=== PATIENT | female | born 1990 | race African-American/Black ===

== ENCOUNTER 2022-07-30 04:08 | Inpatient (IN) | payer OTHER ==
[2022-07-30] MEDS ORDERED: AMPICILLIN - 2 GM in SODIUM CHLORIDE 100 ML IVPB ONE (04:50)
[2022-07-30] MEDS ORDERED: ELECTROLYTE-148 SOLN 1,000 ML IV SCH (04:50)
[2022-07-30] MEDS ORDERED: AMPICILLIN SODIUM 2 GM VIAL ONE (05:17)
[2022-07-30 05:52] VITALS: BMI 36.2
[2022-07-30 07:06] LABS: BASO % 0.5 % (0-2.0); EOS % 4.1 % (0-4.5); HEMATOCRIT 34.4 % (32.4-45.2); HEMOGLOBIN 12.3 GM/dL (10.7-15.3); LYMPH % 29.3 % (8-40); MCH 33.9 pg (25.7-33.7); MCHC 35.7 g/dl (32.0-36.0); MEAN PLT VOLUME 10.9 fl (7.5-11.1); MONO % 10.1 % (3.8-10.2); PLATELET COUNT 162 10^3/uL (134-434); RBC 3.62 M/mm3 (3.60-5.2); RDW 13.3 % (11.6-15.6); WHITE BLOOD COUNT 5.1 K/mm3 (4.0-10.0)
[2022-07-30 07:21] LABS: INR 1.03 (0.83-1.09)
[2022-07-30 07:24] LABS: ACTIVATED PTT 27.6 SECONDS (25.2-36.5)
[2022-07-30 07:28] LABS: CALCIUM 8.8 mg/dL (8.5-10.1)
[2022-07-30 07:29] LABS: BLOOD UREA NITROGEN 14.2 mg/dL (7-18)
[2022-07-30 07:32] LABS: CREATININE 0.5 mg/dL (0.55-1.3)
[2022-07-30] MEDS ORDERED: BUTORPHANOL TARTRATE 1 MG/ML VIAL IVPUSH ONE (08:32)
[2022-07-30] MEDS ORDERED: PROMETHAZINE HCL 25 MG/1 ML VIAL IM ONE (08:32)
[2022-07-30] MEDS ORDERED: AMPICILLIN SODIUM 1 GM VIAL ONE ×4 (09:23→21:20)
[2022-07-30] MEDS ORDERED: SODIUM CHLORIDE 100 ML IVPB ONE ×3 (09:23→17:57)
[2022-07-30] MEDS: AMPICILLIN - 1 GM in SODIUM CHLORIDE 100 ML IVPB SCH ×4 (09:28→21:20)
[2022-07-30] MEDS: ELECTROLYTE-148 SOLN 1,000 ML IV SCH ×2 (12:10→19:10)
[2022-07-30] MEDS ORDERED: OXYTOCIN 30 UNITS in 0.9% NS 30 UNIT/500 ML INFUS.BAG IVPB ONE (13:29)
[2022-07-30] MEDS: OXYTOCIN 30 UNITS in 0.9% NS 30 UNIT/500 ML INFUS.BAG IVPB SCH (13:36)
[2022-07-30] MEDS ORDERED: OXYTOCIN 20 UNITS in 0.9% NS 20 UNIT/1,000 ML INFUS.BAG IV ONE (21:24)
[2022-07-30] MEDS ORDERED: LIDOCAINE HCL 1% PRESERVATIVE FREE - 30ML VIAL ONE (21:24)
[2022-07-31] MEDS ORDERED: AMPICILLIN SODIUM 1 GM VIAL ONE ×6 (01:44→23:35)
[2022-07-31] MEDS: AMPICILLIN - 1 GM in SODIUM CHLORIDE 100 ML IVPB SCH ×6 (01:47→23:30)
[2022-07-31] MEDS: ELECTROLYTE-148 SOLN 1,000 ML IV SCH ×4 (03:50→19:34)
[2022-07-31] MEDS ORDERED: SODIUM CHLORIDE 100 ML IVPB ONE ×3 (09:36→18:36)
[2022-07-31] MEDS: OXYTOCIN 30 UNITS in 0.9% NS 30 UNIT/500 ML INFUS.BAG IVPB SCH (10:42)
[2022-07-31] MEDS ORDERED: FENTANYL/BUPIVACAINE/NS/PF - PCEA - 50 ML DISP.SYRIN EP ONE ×3 (10:56→19:28)
[2022-07-31] MEDS ORDERED: FENTANYL CITRATE/PF 50 MCG/ML VIAL ONE ×3 (11:00→20:43)
[2022-07-31] MEDS ORDERED: BUPIVACAINE HCL/PF 0.25% (2.5MG/ML) 10 ML VIAL ONE ×4 (11:00→20:43)
[2022-07-31] MEDS ORDERED: LIDO 2%/EPI 1:200000 PRESRVFRE (20 ML SDVIAL) ONE ×2 (11:00→11:01)
[2022-07-31] MEDS: FENTANYL/BUPIVACAINE/NS/PF - PCEA - 50 ML DISP.SYRIN EP SCH ×3 (11:25→19:33)
[2022-07-31] MEDS ORDERED: NALOXONE HCL 0.4 MG/ML VIAL IVPUSH PRN (11:35)
[2022-07-31] MEDS ORDERED: ELECTROLYTE-148 SOLN 500 ML IV ONE (11:53)
[2022-07-31] MEDS ORDERED: LIDOCAINE HCL 1% PRESERVATIVE FREE - 30ML VIAL ONE (19:16)
[2022-07-31] MEDS ORDERED: OXYTOCIN 20 UNITS in 0.9% NS 20 UNIT/1,000 ML INFUS.BAG IV ONE (19:17)
[2022-08-01] MEDS ORDERED: WITCH HAZEL 50% (TUCKS) 40 PAD/JAR PAD TP PRN (00:34)
[2022-08-01] MEDS ORDERED: METHYLERGONOVINE MALEATE 0.2 MG/1 ML AMP IM PRN (00:34)
[2022-08-01] MEDS ORDERED: BENZOCAINE 20% 57 GM BOTTLE TP PRN (00:34)
[2022-08-01] MEDS ORDERED: BENZOCAINE 28 GM HEMORRHOIDAL OINTMENT TP PRN (00:34)
[2022-08-01] MEDS ORDERED: ACETAMINOPHEN 325 MG TABLET (FP) PO PRN (00:34)
[2022-08-01] MEDS ORDERED: BISACODYL 10 MG SUPP.RECT RC PRN (00:34)
[2022-08-01] MEDS ORDERED: oxyCODONE HCL 5 MG TABLET PO PRN (00:34)
[2022-08-01] MEDS ORDERED: OXYTOCIN 20 UNITS in 0.9% NS 20 UNIT/1,000 ML INFUS.BAG IV SCH (00:45)
[2022-08-01 01:18] LABS: CORD BASE EXCESS -7.6 mmol/L (0-2); CORD HCO3 20.1 mmHg (20-29); CORD PCO2 48.2 mmHg (30-78); CORD pH 7.237 (7.14-7.44)
[2022-08-01 01:23] LABS: CORD BASE EXCESS -4.3 mmol/L (0-2); CORD HCO3 20.8 mmHg (20-29); CORD PCO2 38.7 mmHg (30-78); CORD pH 7.349 (7.14-7.44)
[2022-08-01] MEDS: IBUPROFEN 600 MG TABLET (FP) PO PRN ×2 (07:59→22:18)
[2022-08-01] MEDS: PRENATAL VITAMINS W/ FOLIC ACID TABLET (FP) PO SCH (10:33)
[2022-08-01 11:25] VITALS: RESP 18
[2022-08-01 15:17] LABS: BASO % 0.1 % (0-2.0); EOS % 2.3 % (0-4.5); HEMATOCRIT 26.5 % (32.4-45.2); HEMOGLOBIN 9.5 GM/dL (10.7-15.3); LYMPH % 10.5 % (8-40); MCH 34.1 pg (25.7-33.7); MCHC 35.8 g/dl (32.0-36.0); MEAN CELL VOLUME 95.4 fl (80-96); MEAN PLT VOLUME 10.1 fl (7.5-11.1); MONO % 9.2 % (3.8-10.2); NEUT % 77.9 % (42.8-82.8); PLATELET COUNT 134 10^3/uL (134-434); RBC 2.78 M/mm3 (3.60-5.2); RDW 13.2 % (11.6-15.6); WHITE BLOOD COUNT 9.1 K/mm3 (4.0-10.0)
[2022-08-01] MEDS: FENTANYL/BUPIVACAINE/NS/PF - PCEA - 50 ML DISP.SYRIN EP SCH (20:49)
[2022-08-02] MEDS: ELECTROLYTE-148 SOLN 1,000 ML IV SCH (03:50)
[2022-08-02 08:56] VITALS: BP 119/73; PULSE 93; TEMP 98.9
[2022-08-02] MEDS: PRENATAL VITAMINS W/ FOLIC ACID TABLET (FP) PO SCH (09:27)
[2022-08-02] MEDS ORDERED: SENNOSIDES/DOCUSATE COMBO (SENNA PLUS) TABLET (UD) PO PRN (22:00)
== END 2022-08-02 14:40 | disposition home or self-care (01) | DRG 768 ==
LOC: JLDR 04:08 → J3W 08-01 02:57
PROVIDERS: ADMIT Obstetrics & Gynecology; ATTEND Obstetrics & Gynecology
PROC: 10E0XZZ Delivery of Products of Conception, External Approach (ICD-10-PCS; principal; 2022-07-31)
PROC: 0DQR0ZZ Repair Anal Sphincter, Open Approach (ICD-10-PCS; 2022-07-31)
DX: O48.0 Post-term pregnancy (principal); Z37.0 Single live birth; O70.20 Third degree perineal laceration during delivery, unspecified; Z3A.40 40 weeks gestation of pregnancy; O42.92 Full-term premature rupture of membranes, unspecified as to length of time between rupture and onset of labor; O99.214 Obesity complicating childbirth; O99.824 Streptococcus B carrier state complicating childbirth; O34.13 Maternal care for benign tumor of corpus uteri, third trimester
CPT/HCPCS: 36415; 36600; 80048; 82803; 85025; 85610; 85730; 86780; 86850; 86900; 86901; C9803-CS; U0003; U0005